=== PATIENT | male | born 2000 | race Caucasian/White ===

== ENCOUNTER 2019-07-19 17:02 | Emergency (ER) | payer OTHER, SELFPAY ==
--- NOTE | 2019-07-19 17:14 | ED_ITS ---
HPI - Eye Problem <Na Moon PA-C - Last Filed: 07/19/19 20:33> General Chief complaint: Eye Problems Stated complaint: rt eye pain, twitching, pressure Time Seen by Provider: 07/19/19 17:04 Source: patient Mode of arrival: Ambulatory Limitations: no limitations History of Present Illness HPI Narrative: This generally healthy 19-year-old male comes in to ED secondary to right eye discomfort. He states in the upper half of the eye yesterday he had a slight soreness/pressure sensation that resolved after he took ibuprofen. This afternoon, he briefly had a halo sensation around lights, and noted very mild irritation sensation again. He states this is a ?crusty? feeling in the corner of his eye which has been intermittently watery. He states that he also noticed some twitching in his bottom eyelid. He states his parents both have cold but he has not had any new upper respiratory symptoms or allergy symptoms. No fever. He has been working and doing his usual activities. He is able to see normally with his glasses. No history of injury or eye problems aside from needing glasses. No new headache or other new complaints on systems review Related Data Previous Rx's Medication Instructions Recorded erythromycin 0.5 inch EYE-RIGHT Q6H #1 gram 07/19/19 Allergies Allergy/AdvReac Type Severity Reaction Status Date / Time No Known Drug Allergies Allergy Verified 07/19/19 17:20 Review of Systems <Na Moon PA-C - Last Filed: 07/19/19 20:33> Review of Systems ROS Unobtainable: All systems reviewed & are unremarkable except as noted in HPI and below PFSH <Na Moon PA-C - Last Filed: 07/19/19 20:33> Medical History Healthy adult (Chronic) Surgical History No history of previous surgery (Acute) Social History Smoking Status: Never smoker Social History Smoking Status: Never smoker Exam <Na Moon PA-C - Last Filed: 07/19/19 20:33> Narrative Exam Narrative: GENERAL APPEARANCE: Patient sitting comfortably, in no distress. HEENT: Mild right-sided conjunctival erythema and there is a tiny right upper medial lid stye. PERRL, EOMI, fundi and vasculature benign from what I am able to visualize with undilated pupils. Sclera appears normal. No tenderness to touch. Vision: OS 20/20, OD 20/20, OU 20/13 LUNGS: Clear to auscultation bilaterally. HEART: Rate and rhythm regular without murmur, normal S1 and S2, no S3 or S4. Initial Vital Signs Initial Vital Signs: Vital Signs Pulse Rate 92 H 07/19/19 17:16 Respiratory Rate 20 07/19/19 17:16 Blood Pressure 148/80 H 07/19/19 17:16 Pulse Oximetry 100 07/19/19 17:16 <Gab Shannon DO - Last Filed: 07/21/19 07:18> Initial Vital Signs Initial Vital Signs: Vital Signs Pulse Rate 92 H 07/19/19 17:16 Respiratory Rate 20 07/19/19 17:16 Blood Pressure 148/80 H 07/19/19 17:16 Pulse Oximetry 100 07/19/19 17:16 Course <THOMAS Reyes Last Filed: 07/19/19 20:33> Vital Signs Vital signs: Vital Signs - 8 hr 07/19/19 17:16 07/19/19 18:01 Pulse Rate 92 H 89 Respiratory Rate 20 15 Blood Pressure 148/80 H Blood Pressure [Left Arm] 120/67 Pulse Oximetry 100 99 <DO Lexa De Leon Last Filed: 07/21/19 07:18> Vital Signs Vital signs: Vital Signs - 8 hr 07/19/19 17:16 07/19/19 18:01 Pulse Rate 92 H 89 Respiratory Rate 20 15 Blood Pressure 148/80 H Blood Pressure [Left Arm] 120/67 Pulse Oximetry 100 99 Discharge Plan Departure Patient Disposition: Home Clinical Impression: Hordeolum Qualifiers: Hordeolum type: unspecified type Laterality: right Eyelid: upper Qualified Code(s): H00.011 - Hordeolum externum right upper eyelid Conjunctivitis Qualifiers: Conjunctivitis type: acute Acute conjunctivitis type: unspecified Laterality: right Qualified Code(s): H10.31 - Unspecified acute conjunctivitis, right eye Discharge Date/Time: 07/19/19 18:32 Instructions: DI for Conjunctivitis, DI for Hordeolum Activity Restrictions/Additional Instructions: You have a small stye on in the upper eyelid that may be causing some of the irritated sensation that you described. You also have a mild pink eye. This could be viral since others in your household have had colds, but I have prescribed some antibiotic ointment to cover for bacterial infections as well and this should help the scratchiness and discomfort from the stye. You should also apply a warm pack to the eyelid every couple of hours when you are at home. You should return as we talked about if you have any acutely worsening symptoms or new symptoms such as severe pain or vision change. Otherwise, please call your eye doctor 1st thing in the morning and let them know you were seen in the emergency room and we want to have you follow up there tomorrow. If you are unable to be seen there, please contact our local ophthalmologists (I have given you their number in case you need to reach them) Prescriptions: New erythromycin 5 mg/gram (0.5 %) ointment 0.5 inch EYE-RIGHT Q6H Qty: 1 RF: 0 Referrals: [facility], [place] [Other] [facility] [Provider Group]
[2019-07-19 17:16] VITALS: BP 148/80; PULSE 92; RESP 20; O2SAT 100; BMI 28.6
[2019-07-19 18:01] VITALS: BP 120/67; PULSE 89; RESP 15; O2SAT 99
== END 2019-07-19 18:32 | disposition home or self-care (01) ==
PROVIDERS: Emergency Provider Internal Medicine
DX: H00.011 Hordeolum externum right upper eyelid (principal); H10.31 Unspecified acute conjunctivitis, right eye
CPT/HCPCS: 99283